=== PATIENT | male | born 1945 | race Caucasian/White ===

== ENCOUNTER 2016-12-10 15:36 | Inpatient (IN) | payer MEDICARE, OTHER ==
[~2016-12-10 15:36] MED LIST: BAYER ASPIRIN325 M1 PO; EFFIENT10 MG/TAB PO; TOPROL XL50 MG PO; UNIRETIC PO; ZOCOR40 MG PO
[2016-12-10 16:18] LABS: URINE BILIRUBIN NEGATIVE (NEG); URINE BLOOD LARGE (NEG); URINE GLUCOSE (UA) NEGATIVE (NEG); URINE KETONE SMALL (NEG); URINE LEUKOCYTE ESTERASE NEGATIVE (NEG); URINE NITRITE NEGATIVE (NEG); URINE PROTEIN SMALL (NEG)
[2016-12-10 16:28] LABS: URINE APPEARANCE CLEAR; URINE COLOR YELLOW
[2016-12-10 16:33] LABS: BASO % 0.1 % (0-2); EOS % 0.2 % (0-7); HCT-HEMATOCRIT 43.3 % (36.0-53.5); HGB-HEMOGLOBIN 14.7 gm/dl (13.5-17.0); IMMATURE GRANULOCYTES ABSOLUTE 0.02 tho/cmm (0-0.03); IMMATURE GRANULOCYTES PERCENT 0.2 % (0-0.3); LYMPH % 7.3 % (20-45); LYMPH ABSOLUTE COUNT 0.6 tho/cmm (0.8-4.5); MCH (MEAN CORPUSCULAR HGB) 32.2 pg (28.0-32.0); MCHC MEAN CORPUSCULAR HGB CONC 33.9 % (32.0-36.0); MEAN PLATELET VOLUME 9.4 cmc (9.4-12.4); MONOCYTE ABSOLUTE COUNT 0.5 tho/cmm (0.0-1.2); NEUTROPHIL ABSOLUTE COUNT 7.2 tho/cmm (1.6-8.0); NEUTROPHIL-AUTOMATED 7.2 tho/cmm (1.6-8.0); NEUTROPHILS % 86.2 % (40-80); RED BLOOD COUNT 4.56 mil/cmm (4.40-5.70); RED CELL DISTRIBUTION WIDTH 12.9 % (12.4-16.4); WHITE BLOOD COUNT 8.4 tho/cmm (4.0-10.0)
[2016-12-10 16:35] LABS: URINE BACTERIA 1+; URINE EPITHELIAL CELLS 0-1 /[HPF] (0-10)
[2016-12-10 16:47] LABS: ANION GAP 14 mmol/L (0-20); BLOOD UREA NITROGEN 21 mg/dl (6-24); CARBON DIOXIDE-VENOUS 24 mmol/L (22-32); CHLORIDE 107 mmol/l (96-110); CREATININE 1.11 mg/dl (0.60-1.30); GLUCOSE 97 mg/dL (70-110); POTASSIUM 3.7 mmol/L (3.7-5.1); SODIUM 141 mmol/L (135-145); eGFR VALUE FOR BLACK 76 mL/Min
[2016-12-10 17:06] LABS: PROCALCITONIN 0.51 ng/ml (0.05-0.09)
[2016-12-10 17:13] LABS: PLATELET COUNT 73 tho/cmm (150-450)
[2016-12-10] MEDS ORDERED: FISH OIL 11000 MG/CA PO (20:58)
[2016-12-10] MEDS ORDERED: BENAZEPRIL HCL10 M2 PO (20:58)
[2016-12-10] MEDS ORDERED: TOPROL XL50 M1 PO (20:59)
[2016-12-10] MEDS ORDERED: SYNTHROID50 MC1 PO (20:59)
[2016-12-10] MEDS ORDERED: ZOCOR40 M1 PO (20:59)
[2016-12-10] MEDS ORDERED: ISOSORBIDE MONO60 M3 PO (20:59)
[2016-12-10] MEDS ORDERED: HYDROCODON-ACE1 EA17 PO (21:00)
[2016-12-10 22:49] LABS: ALB/GLOB RATIO 0.8 (0.8-2.0); ALBUMIN 2.7 g/dl (3.5-5.0); ALKALINE PHOSPHATASE 52 U/L (33-138); ALT/SGPT 17 U/L (12-78); ANION GAP 12 mmol/L (0-20); AST/SGOT 18 U/L (10-40); BLOOD UREA NITROGEN 19 mg/dl (6-24); CALCIUM 7.5 mg/dl (8.5-10.5); CARBON DIOXIDE-VENOUS 24 mmol/L (22-32); CHLORIDE 106 mmol/l (96-110); GLUCOSE 94 mg/dL (70-110); POTASSIUM 3.7 mmol/L (3.7-5.1); SODIUM 138 mmol/L (135-145); eGFR VALUE FOR BLACK 87 mL/Min
[2016-12-11 04:50] LABS: BASO % 0.2 % (0-2); EOS % 0.7 % (0-7); HCT-HEMATOCRIT 43.6 % (36.0-53.5); HGB-HEMOGLOBIN 14.7 gm/dl (13.5-17.0); IMMATURE GRANULOCYTES ABSOLUTE 0.01 tho/cmm (0-0.03); IMMATURE GRANULOCYTES PERCENT 0.2 % (0-0.3); LYMPH % 9.5 % (20-45); LYMPH ABSOLUTE COUNT 0.5 tho/cmm (0.8-4.5); MCH (MEAN CORPUSCULAR HGB) 32.1 pg (28.0-32.0); MCHC MEAN CORPUSCULAR HGB CONC 33.7 % (32.0-36.0); MCV (MEAN CELL VOLUME) 95.2 fl (82.0-96.0); MEAN PLATELET VOLUME 9.6 cmc (9.4-12.4); MONO % 8.8 % (0-12); MONOCYTE ABSOLUTE COUNT 0.5 tho/cmm (0.0-1.2); NEUTROPHIL ABSOLUTE COUNT 4.3 tho/cmm (1.6-8.0); NEUTROPHIL-AUTOMATED 4.3 tho/cmm (1.6-8.0); NEUTROPHILS % 80.6 % (40-80); PLATELET COUNT 63 tho/cmm (150-450); RED BLOOD COUNT 4.58 mil/cmm (4.40-5.70); RED CELL DISTRIBUTION WIDTH 12.9 % (12.4-16.4); WHITE BLOOD COUNT 5.4 tho/cmm (4.0-10.0)
[2016-12-11 05:07] LABS: ANION GAP 13 mmol/L (0-20); BLOOD UREA NITROGEN 16 mg/dl (6-24); CALCIUM 8.1 mg/dl (8.5-10.5); CARBON DIOXIDE-VENOUS 23 mmol/L (22-32); CHLORIDE 108 mmol/l (96-110); CREATININE 1.04 mg/dl (0.60-1.30); GLUCOSE 101 mg/dL (70-110); POTASSIUM 3.5 mmol/L (3.7-5.1); SODIUM 140 mmol/L (135-145); eGFR VALUE FOR BLACK 83 mL/Min
--- NOTE | 2016-12-11 21:27 | NUR ---
DOUG HARDY-VISITED WITH PATIENT AND HIS AT BEDSIDE HE LAY IN BED. PATIENT DENIES MUCH PAIN OTHER THAN OCCASIONAL PAIN ON HIS RIGHT GROIN WHERE THE REDNESS/SWELLING IS AT. PATIENT HAS NO QUESTIONS OTHER THAN HE HOPES TO GO HOME TOMORROW. I DID EXPLAIN DEPENDS ON HOW LONG THE DOCTORS WANT TO KEEP HIM ON IV ABX. PATIENT UNDERSTOOD.
[2016-12-12 05:42] LABS: HGB-HEMOGLOBIN 13.2 gm/dl (13.5-17.0); PLATELET COUNT 72 tho/cmm (150-450)
[2016-12-12] MEDS ORDERED: KEFLEX500 M4 PO (12:08)
[2017-03-25] MEDS ORDERED: KEFLEX500 M4 PO (12:36)
== END 2016-12-12 16:40 | DRG 603 ==
LOC: EDMED 15:36 → EMR2 23:20 → 5WD 23:23
PROVIDERS: Emergency Medicine; Hospitalist; Internal Medicine; Registered Nurse; ADMIT Hospitalist
DX: L03.115 Cellulitis of right lower limb (principal); D69.6 Thrombocytopenia, unspecified; C20 Malignant neoplasm of rectum; Z79.899 Other long term (current) drug therapy; I10 Essential (primary) hypertension; R00.1 Bradycardia, unspecified; T44.7X5A Adverse effect of beta-adrenoreceptor antagonists, initial encounter; E03.9 Hypothyroidism, unspecified; E78.5 Hyperlipidemia, unspecified; I25.10 Atherosclerotic heart disease of native coronary artery without angina pectoris; Z95.5 Presence of coronary angioplasty implant and graft; Z95.828 Presence of other vascular implants and grafts; Z88.0 Allergy status to penicillin
CPT/HCPCS: G8978-GP-CI; G8979-GP-CI; G8980-GP-CI; J0696; J1650; J7030; Q9967